=== PATIENT | male | born 1990 | race Two or more races ===

== ENCOUNTER 2016-12-05 15:38 | Emergency (ER) | payer SELFPAY ==
[2016-12-05] MEDS ORDERED: ASPIRIN CHEWTAB 81 MG TABLET ONE (16:19)
[2016-12-05] MEDS ORDERED: MAALOX/LIDO2%VISC/SIMETHICONE 40 ML BOT ONE (16:19)
[2016-12-05] MEDS ORDERED: ONDANSETRON 4 MG ODT TAB ONE ×2 (16:19→17:22)
[2016-12-05] MEDS ORDERED: ONDANSETRON 4 MG/2ML 2 ML VIAL ONE (17:22)
[2016-12-05] MEDS ORDERED: LACTATED RINGERS 1,000 ML ONE (17:22)
[2016-12-05] MEDS ORDERED: MORPHINE SULFATE 2 MG/ML SYRINGE ONE (17:22)
[2016-12-05] MEDS ORDERED: MORPHINE SULFATE 4 MG/ML SYRINGE ONE (17:22)
[2016-12-05 17:38] LABS: ABSOLUTE NEUTROPHIL COUNT 7.9 K/mm3 (1.8-7.7); BASO % 0.2 % (0.2-1.0); EOS % 0.1 % (0.9-2.9); HEMATOCRIT 45.9 % (32.0-52.0); HEMOGLOBIN 15.7 gm/l (14.0-18.0); IMM NEUT% 0.3 % (0-1); LYMPH # 0.9 (1.0-4.8); LYMPH % 10.3 % (15-45); MEAN CELL VOLUME 83.9 fl (80.0-94.0); MEAN CORPUSCULAR HEMOGLOBIN 28.7 pg (27.0-31.0); MEAN CORPUSCULAR HGB CONC 34.2 g/dl (33.0-37.0); MEAN PLATELET VOLUME 11.5 fl (7.4-10.4); MONO # 0.2 (0.0-0.8); MONO % 1.9 % (4-12); NEUT % 87.2 % (43-75); PLATELET COUNT 255 K/mm3 (130-400); RED CELL DISTRIBUTION WIDTH 12.6 % (11.5-14.5)
[2016-12-05 17:51] LABS: ALB/GLOB RATIO 1.5 (>1.0); ALBUMIN 4.8 gm/dL (3.5-5.7); CALCIUM 9.8 mg/dL (8.6-10.3)
--- NOTE | 2016-12-05 18:36 | RAD ---
History: Hypotension with abdominal pain. Comparison: None. Technique: 2 views Findings: The soft tissue and bony structures are unremarkable. The heart size is appropriate. No infiltrate, effusion or pneumothorax is observed. The hilar and mediastinal structures are normal. Impression: 1. A negative 2 view chest
== END 2016-12-05 19:00 | disposition home or self-care (01) ==
LOC: ED 15:38
DX: R10.13 Epigastric pain (principal); K92.0 Hematemesis; R11.2 Nausea with vomiting, unspecified; R00.1 Bradycardia, unspecified